=== PATIENT | female | born 1980 | race Caucasian/White ===

== ENCOUNTER → 2020-10-05 | Outpatient (CLI) | payer OTHER ==
[~2020-10-05] MED LIST: OMNICEF 300 MG300 MG PO; PREDNISONE 50 M50 MG PO; PROTONIX20 MG PO; ZITHROMAX250 MG PO
== END ==
LOC: HEART 5 15:02
DX: R07.89 Other chest pain (principal); I27.20 Pulmonary hypertension, unspecified; I08.3 Combined rheumatic disorders of mitral, aortic and tricuspid valves
CPT/HCPCS: 93306

== ENCOUNTER → 2021-01-13 | Outpatient (CLI) | payer OTHER | LOC: NM 12:55 | DX: R10.9 Unspecified abdominal pain (principal); R11.2 Nausea with vomiting, unspecified; R93.2 Abnormal findings on diagnostic imaging of liver and biliary tract | CPT/HCPCS: 78226; A9537 ==

== ENCOUNTER → 2021-09-14 | Outpatient (CLI) | payer OTHER | LOC: EXRD 11:00 | DX: J20.9 Acute bronchitis, unspecified (principal); Z95.2 Presence of prosthetic heart valve | CPT/HCPCS: 71046 ==

== ENCOUNTER → 2021-10-27 | Outpatient (CLI) | payer OTHER | LOC: CT 12:20 | DX: R04.2 Hemoptysis (principal); R59.0 Localized enlarged lymph nodes | CPT/HCPCS: 71260; Q9967 ==